=== PATIENT | male | born 1990 | race Caucasian/White ===

== ENCOUNTER → 2020-09-15 | Outpatient (CLI) | payer OTHER | LOC: AMSURD 16:00 | DX: R00.2 Palpitations (principal) ==

== ENCOUNTER → 2020-09-18 | Outpatient (CLI) | payer OTHER ==
[2020-09-18 16:49] LABS: HEMATOCRIT 47.9 % (42.0-52.0); HEMOGLOBIN 16.7 g/dL (13.5-18.0); MEAN PLATELET VOLUME 9.9 fl (7.4-10.4); RED BLOOD COUNT 5.44 M/mm3 (4.20-5.60); RED CELL DISTRIBUTION WIDTH 12.3 % (11.5-14.5); WHITE BLOOD COUNT 7.2 K/mm3 (4.8-10.8)
[2020-09-18 17:07] LABS: ALBUMIN 4.6 g/dL (3.5-5.0)
[2020-09-18 17:08] LABS: POTASSIUM 3.7 mmol/L (3.5-5.1)
[2020-09-18 17:09] LABS: CALCIUM 9.4 mg/dL (8.3-10.5)
[2020-09-18 17:10] LABS: TOTAL PROTEIN 7.4 g/dL (6.4-8.3)
[2020-09-18 17:12] LABS: TOTAL BILIRUBIN 0.6 mg/dL (0.2-1.2)
== END ==
LOC: AMSURD 16:30 → LAB 16:30
PROVIDERS: Family Medicine
DX: R00.2 Palpitations (principal); R73.9 Hyperglycemia, unspecified

== ENCOUNTER → 2020-09-22 | Outpatient (CLI) | payer OTHER | LOC: AMSURD 09:54 | DX: R00.2 Palpitations (principal) ==

== ENCOUNTER → 2020-09-26 | Outpatient (CLI) | payer OTHER | LOC: LAB 12:06 | DX: R00.2 Palpitations (principal) ==